=== PATIENT | male | born 1980 | race Caucasian/White ===

== ENCOUNTER 2018-09-24 20:05 | Emergency (ER) | payer OTHER ==
--- OUTSIDE RECORDS SUMMARY | 2018-09-24 20:07 | XMS REPORT | Continuity of Care Document ---
:09/05/1990 Author Organization Interface Problems Problem Status Onset Classification Date Comments Source Date Reported Discharge 01/29/2017 [facility] Diagnosis: 7 Medical Exposure to [place] hepatitis C EXPOSURE Active [address] Medications Medication Details Route Status Patient Ordering Order Source Instructions Provider Date Allergies, Adverse Reactions, Alerts Substance Category Reaction Severity Reaction Status Date Comments Source type Reported Immunizations Immunization Date Given Site Status Last Updated Comments Source Results Order Results Value Reference Date Interpretation Comments Source Name Range Vital Signs Vital Sign Value Date Comments Source Temperature Oral (F) 97.9 F 01/26/2017 [facility] Systolic (mm Hg) 130 01/26/2017 [facility] Diastolic (mm Hg) 86 01/26/2017 [facility] Respitory Rate 16 01/26/2017 [facility] Heart Rate 66 01/26/2017 [facility] BMI Calculated 38.48 01/26/2017 [facility] Weight 118.182 01/26/2017 [facility] Temperature Oral (F) 97.9 F 01/26/2017 [facility] Height 175.26 cm 01/26/2017 [facility] Respitory Rate 18 01/26/2017 [facility] Heart Rate 68 01/26/2017 [facility] Systolic (mm Hg) 121 01/26/2017 [facility] Diastolic (mm Hg) 85 01/26/2017 [facility] Encounters Location Location Encounter Encounter Reason Attending ADM DC Status Source Details Type Number For Provider Date Date [facility] [id number] Dwayne 01/26 01/26 [facility] Jeramie Ulisses /2016 [facility] Procedures Procedure Code Date Perfomer Comments Source
--- OUTSIDE RECORDS SUMMARY | 2018-09-24 20:07 | XMS REPORT | Summary of Care ---
:09/05/1990 Author Organization [facility] Address [address] [place] [id number]- Encounter HQ Pb_jefe(ANDREW) [id number] Date(s): 01/26/17 - 01/26/[address] Professional Services provided by [facility] [place] [address]- Discharge Diagnosis: Exposure to hepatitis C Discharge Disposition: Home or Self Care Attending Physician: Carito Hicks MD Admitting Physician: Dwayne Gtz MD Vital Signs Most recent to oldest [Reference Range]: 1 2 Height 175.26 cm (01/26/17 8:26 AM) Temperature Oral [96.4-99.1 DegF] 97.9 DegF 97.9 DegF (01/26/17 10:00 AM) (01/26/17 8:26 AM) Blood Pressure [90-140/60-90 mmHg] 130/86 mmHg 121/85 mmHg (01/26/17 10:00 AM) (01/26/17 8:26 AM) Respiratory Rate [14-20 BRMIN] 16 BRMIN 18 BRMIN (01/26/17 10:00 AM) (01/26/17 8:26 AM) Peripheral Pulse Rate [60-100 bpm] 66 bpm 68 bpm (01/26/17 10:00 AM) (01/26/17 8:26 AM) Weight 118.182 kg (01/26/17 8:26 AM) Body Mass Index 38.48 m2 (01/26/17 8:26 AM) Problem List No data available for this section Allergies, Adverse Reactions, Alerts Substance Reaction Severity Status NKDA Active Medications No data available for this section Results No data available for this section Immunizations No data available for this section Procedures No data available for this section Social History Social History Type Response Smoking Status Never smoker; Exposure to Tobacco Smoke None; Cigarette Smoking Last 365 Days No; Reg Smoking Cessation Counseling No Assessment and Plan No data available for this section
[2018-09-24] MEDS ORDERED: IBUPROFEN 400 MG TAB ONE (20:39)
[2018-09-24] MEDS ORDERED: NA CHLORIDE 0.9% 1,000 ML ONE ×2 (20:39→20:44)
[2018-09-24] MEDS ORDERED: ACETAMINOPHEN 500 MG TAB ONE (20:39)
[2018-09-24] MEDS ORDERED: IBUPROFEN 200 MG TAB PO ONE (20:43)
[2018-09-24] MEDS ORDERED: CEFTRIAXONE/SWI 1gm 1 GM/10 ML SYR ONE (20:44)
--- NOTE | 2018-09-24 20:52 | RAD REPORT ---
EXAM DESCRIPTION: RAD - Chest Pa And Lat (2 Views) - 09/24/2018 8:41 pm CLINICAL HISTORY: COUGH Chest pain. COMPARISON: No comparisons FINDINGS: The lungs are clear. The heart is normal in size. No displaced fractures. IMPRESSION: No acute or concerning finding suspected.
[2018-09-24 21:11] LABS: Absolute Lymphocytes (CBC) 0.6 K/uL (0.7-4.9); Absolute Monocytes 0.9 K/uL (0.1-1.3); Absolute Neutrophil 5.3 K/uL (1.8-8.0); Basophils % 0.3 % (0-1.3); Hematocrit 43.6 % (39.6-49.0); Lymphocytes % 8.3 % (15.3-44.8); Monocytes % 13.7 % (3.3-12.3); RBC Red Blood Cell Count 4.93 M/uL (4.33-5.43)
[2018-09-24 21:22] LABS: Albumin 4.4 g/dL (3.4-5.0); Bilirubin Total 0.6 mg/dL (0.2-1.0); Potassium 3.8 mmol/L (3.5-5.1)
[2018-09-24 21:23] LABS: Urine Blood NEGATIVE (NEG); Urine Glucose NEGATIVE (NEG); Urine Protein NEGATIVE (NEG)
--- NOTE | 2018-09-24 21:27 | EDPHYS ---
Physician Documentation [facility] Name: Lauri Boyd Age: 38 yrs Sex: Male : 1980 Arrival Date: 09/24/2018 Time: 20:06 Bed 8 Private MD: DUONG Physician Alexander Blankenship HPI: 09/24 20:32 This 38 yrs old Male presents to ER via Ambulatory with complaints of Fever, raymond Headache. 20:32 The patient reports fever, that was measured at 103 degrees Fahrenheit. Onset: The raymond symptoms/episode began/occurred 2 day(s) ago. Modifying factors: there are no obvious modifying factors. Associated signs and symptoms: Pertinent positives:. Severity of symptoms: At their worst the symptoms were. The patient has not experienced similar symptoms in the past. Historical: - Allergies: 20:12 No Known Allergies; la1 - PMHx: 20:12 None; la1 - PSHx: 20:12 ankle; colonoscopy; la1 - Immunization history:: Adult Immunizations up to date. - Social history:: Smoking status: unknown. - Ebola Screening: : No symptoms or risks identified at this time. - Family history:: not pertinent. ROS: 20:32 Constitutional: Negative for fever, chills, and weight loss, Eyes: Negative for injury, raymond pain, redness, and discharge, ENT: Negative for injury, pain, and discharge, Neck: Negative for injury, pain, and swelling, Cardiovascular: Negative for chest pain, palpitations, and edema, Respiratory: Negative for shortness of breath, cough, wheezing, and pleuritic chest pain, Abdomen/GI: Negative for abdominal pain, nausea, vomiting, diarrhea, and constipation, Back: Negative for injury and pain, : Negative for injury, bleeding, discharge, and swelling, MS/Extremity: Negative for injury and deformity, Skin: Negative for injury, rash, and discoloration, Neuro: Negative for headache, weakness, numbness, tingling, and seizure, Psych: Negative for depression, anxiety, suicide ideation, homicidal ideation, and hallucinations, Allergy/Immunology: Negative for hives, rash, and allergies, Endocrine: Negative for neck swelling, polydipsia, polyuria, polyphagia, and marked weight changes, Hematologic/Lymphatic: Negative for swollen nodes, abnormal bleeding, and unusual bruising. Exam: 20:32 Head/Face: Normocephalic, atraumatic. Eyes: Pupils equal round and reactive to light, raymond extra-ocular motions intact. Lids and lashes normal. Conjunctiva and sclera are non-icteric and not injected. Cornea within normal limits. Periorbital areas with no swelling, redness, or edema. ENT: Nares patent. No nasal discharge, no septal abnormalities noted. Tympanic membranes are normal and external auditory canals are clear. Oropharynx with no redness, swelling, or masses, exudates, or evidence of obstruction, uvula midline. Mucous membranes moist. Neck: Trachea midline, no thyromegaly or masses palpated, and no cervical lymphadenopathy. Supple, full range of motion without nuchal rigidity, or vertebral point tenderness. No Meningismus. Chest/axilla: Normal chest wall appearance and motion. Nontender with no deformity. No lesions are appreciated. Cardiovascular: Regular rate and rhythm with a normal S1 and S2. No gallops, murmurs, or rubs. Normal PMI, no JVD. No pulse deficits. Respiratory: Lungs have equal breath sounds bilaterally, clear to auscultation and percussion. No rales, rhonchi or wheezes noted. No increased work of breathing, no retractions or nasal flaring. Abdomen/GI: Soft, non-tender, with normal bowel sounds. No distension or tympany. No guarding or rebound. No evidence of tenderness throughout. Back: No spinal tenderness. No costovertebral tenderness. Full range of motion. Male : Normal genitalia with no discharge or lesions. Skin: Warm, dry with normal turgor. Normal color with no rashes, no lesions, and no evidence of cellulitis. MS/ Extremity: Pulses equal, no cyanosis. Neurovascular intact. Full, normal range of motion. Neuro: Awake and alert, GCS 15, oriented to person, place, time, and situation. Cranial nerves II-XII grossly intact. Motor strength 5/5 in all extremities. Sensory grossly intact. Cerebellar exam normal. Normal gait. Psych: Awake, alert, with orientation to person, place and time. Behavior, mood, and affect are within normal limits. 20:32 Constitutional: The patient appears febrile. 21:18 Neuro: Orientation: is normal, appropriate for stated age, Mentation: is normal, raymond appropriate for stated age, Memory: is normal, appropriate for stated age, Cranial nerves: grossly normal, is grossly normal based on the patient's age, Cerebellar function: is grossly normal, is grossly normal based on the patient's age, Motor: moves all fours, Sensation: no obvious gross deficits, appropriate no acute changes, Gait: is steady, appropriate for age, seizure activity, is not displayed by the patient. Vital Signs: 20:12 BP 112 / 76; Pulse 99; Resp 16; Temp 101.0; Pulse Ox 99% on R/A; Weight 74.84 kg; la1 Height 5 ft. 9 in. (175.26 cm); Pain /; 21:08 BP 115 / 78; Pulse 85; Resp 16; Pulse Ox 100% on R/A; aa1 21:35 BP 111 / 71; Pulse 84; Resp 16; Temp 99(O); Pulse Ox 100% on R/A; ag4 20:12 Body Mass Index 24.37 (74.84 kg, 175.26 cm) la1 MDM: 20:13 Patient medically screened. [facility] 20:35 Data reviewed: vital signs, nurses notes, lab test result(s), radiologic studies, plain raymond films. 09/24 20:29 Order name: CBC with Diff; Complete Time: 21:18 [facility] 09/24 20:29 Order name: Comprehensive Metabolic Panel; Complete Time: 21:26 [facility] 09/24 20:29 Order name: Blood Culture Adult (2) [facility] 09/24 20:29 Order name: Urine Culture [facility] 09/24 20:29 Order name: Strep; Complete Time: 21:18 [facility] 09/24 20:29 Order name: Flu; Complete Time: 21:18 [facility] 09/24 20:29 Order name: Chest Pa And Lat (2 Views) XRAY; Complete Time: 21:02 [facility] 09/24 20:43 Order name: Urine Dipstick--Ancillary (enter results); Complete Time: 21:26 ar5 09/24 21:08 Order name: Throat Culture [facility] 09/24 20:29 Order name: Urine Dipstick-Ancillary (obtain specimen); Complete Time: 20:37 [facility] Administered Medications: 20:37 Drug: Motrin 600 mg Route: PO; 21:37 Follow up: Response: No adverse reaction; Temperature is decreased aa1 20:37 Drug: Tylenol 1000 mg Route: PO; fc 21:37 Follow up: Response: No adverse reaction; Temperature is decreased aa1 20:37 CANCELLED (md order): NS 0.9% 1000 ml IV at 1 bolus Per protocol; 1000 mL bolus 20:58 Drug: NS 0.9% 1000 ml Route: IV; Rate: 1 bolus; Site: left antecubital; aa1 21:49 Follow up: IV Status: Completed infusion; IV Intake: 1000ml aa 20:58 Drug: NS 0.9% 1000 ml Route: IV; Rate: 1 bolus; Site: left antecubital; aa1 21:49 Follow up: IV Status: Completed infusion; IV Intake: 1000ml aa 20:58 Drug: Rocephin 1 grams Route: IV; Rate: per protocol; Site: left antecubital; aa1 21:03 Follow up: IV Status: Completed infusion aa1 21:49 Drug: Zithromax 500 mg Route: PO; aa1 21:49 Follow up: Response: Medication administered at discharge. aa1 Disposition: 09/24/18 21:27 Discharged to Home. Impression: Fever, unspecified, Malaise and fatigue. - Condition is Stable. - Discharge Instructions: Fever, Adult, Weakness, Weakness, [id number], Fever, Adult, [id number]. - Prescriptions for Zithromax 500 mg Oral Tablet - take 1 tablet by ORAL route once daily for 4 days; 4 tablet. - Medication Reconciliation Form, Thank You Letter, Antibiotic Education, Prescription Opioid Use form. - Follow up: Private Physician; When: 2 - 3 days; Reason: Recheck today's complaints, Continuance of care, Re-evaluation by your physician. - Problem is new. - Symptoms have improved. Signatures: Dispatcher [employer] EDMS Judy Velasquez RN RN aa1 Alexander Blankenship MD MD cha Chretien, Felicia, RN RN Altaf Nguyen RN RN la1 Corrections: (The following items were deleted from the chart) 20:37 20:29 NS 0.9% 1000 ml IV at 1 bolus Per protocol; 1000 mL bolus ordered. raymond 21:52 21:27 09/24/2018 21:27 Discharged to Home. Impression: Fever, unspecified; Malaise and aa1 fatigue. Condition is Stable. Discharge Instructions: Fever, Adult, Weakness, Weakness, [id number]-[id number], Fever, Adult, [id number]. Prescriptions for Zithromax 500 mg Oral Tablet - take 1 tablet by ORAL route once daily for 5 days; 5 tablet. and Forms are Medication Reconciliation Form, Thank You Letter, Antibiotic Education, Prescription Opioid Use. Follow up: Private Physician; When: 2 - 3 days; Reason: Recheck today's complaints, Continuance of care, Re-evaluation by your physician. Problem is new. Symptoms have improved. raymond
--- NOTE | 2018-09-24 21:27 | ER ---
Nurse's Notes [facility] Name: Lauri Boyd Age: 38 yrs Sex: Male : 1980 Arrival Date: 09/24/2018 Time: 20:06 Bed 8 Private MD: Diagnosis: Fever, unspecified;Malaise and fatigue Presentation: 09/24 20:11 Presenting complaint: Patient states: Fever and headache since last night, TMAX 103, la1 motrin taken at 1400. Transition of care: patient was not received from another setting of care. Onset of symptoms was September 24, 2018. Risk Assessment: Do you want to hurt yourself or someone else? Patient reports no desire to harm self or others. Risk Assessment: Do you want to hurt yourself or someone else?. Initial Sepsis Screen: Does the patient meet any 2 criteria? No. Patient's initial sepsis screen is negative. Does the patient have a suspected source of infection? No. Patient's initial sepsis screen is negative. Care prior to arrival: None. 20:11 Method Of Arrival: Ambulatory la1 20:11 Acuity: RADHA 3 la1 Historical: - Allergies: 20:12 No Known Allergies; la1 - PMHx: 20:12 None; la1 - PSHx: 20:12 ankle; colonoscopy; la1 - Immunization history:: Adult Immunizations up to date. - Social history:: Smoking status: unknown. - Ebola Screening: : No symptoms or risks identified at this time. - Family history:: not pertinent. Screenin:20 Abuse screen: Denies threats or abuse. Denies injuries from another. Nutritional aa1 screening: No deficits noted. Tuberculosis screening: No symptoms or risk factors identified. Fall Risk None identified. Assessment: 20:20 General: Appears in no apparent distress. comfortable, slender, Behavior is calm, aa1 cooperative, appropriate for age. Pain: Complains of pain in head Quality of pain is described as aching, throbbing, Is continuous. Neuro: Level of Consciousness is awake, alert, obeys commands, Oriented to person, place, time, situation, Moves all extremities. Gait is steady, Speech is normal. Neuro: Reports headache. Cardiovascular: Heart tones S1 S2 present Rhythm is regular. Respiratory: Airway is patent Respiratory effort is even, unlabored, Respiratory pattern is regular, symmetrical, Breath sounds are clear bilaterally. GI: No signs and/or symptoms were reported involving the gastrointestinal system. : No signs and/or symptoms were reported regarding the genitourinary system. EENT: No signs and/or symptoms were reported regarding the EENT system. Throat is clear. Derm: Skin is intact, is healthy with good turgor, Skin is pink, warm \T\ dry. Musculoskeletal: Circulation, motion, and sensation intact. Capillary refill < 3 seconds. 21:50 Reassessment: Patient appears in no apparent distress at this time. Patient is alert, aa1 oriented x 3, equal unlabored respirations, skin warm/dry/pink. Discussed d/c \T\ f/u instructions with pt; denies questions or concerns at this time. Amb to lobby with steady gait. Patient states feeling better. Patient states symptoms have improved. Vital Signs: 20:12 BP 112 / 76; Pulse 99; Resp 16; Temp 101.0; Pulse Ox 99% on R/A; Weight 74.84 kg; la1 Height 5 ft. 9 in. (175.26 cm); Pain 1/10; 21:08 BP 115 / 78; Pulse 85; Resp 16; Pulse Ox 100% on R/A; aa1 21:35 BP 111 / 71; Pulse 84; Resp 16; Temp 99(O); Pulse Ox 100% on R/A; ag4 20:12 Body Mass Index 24.37 (74.84 kg, 175.26 cm) la1 ED Course: 20:06 Patient arrived in ED. am2 20:11 Triage completed. la1 20:12 Arm band placed on left wrist. la1 20:13 Alexander Blankenship MD is Attending Physician. [facility] 20:19 Judy Velasquez, JOE is Primary Nurse. aa1 20:20 Patient has correct armband on for positive identification. Bed in low position. Call aa1 light in reach. Pulse ox on. NIBP on. 20:28 Urine collected: clean catch specimen, daniel colored. aa1 20:30 Initial lab(s) drawn, by me, sent to lab. First set of blood cultures drawn by me. aa1 Inserted saline lock: 20 gauge in left antecubital area, using aseptic technique. Blood collected. 20:39 Chest Pa And Lat (2 Views) XRAY In Process Unspecified. EDMS 20:48 Second set of blood cultures drawn by me. aa1 21:50 No provider procedures requiring assistance completed. IV discontinued, intact, aa1 bleeding controlled, No redness/swelling at site. Pressure dressing applied. Administered Medications: 20:37 Drug: Motrin 600 mg Route: PO; fc 21:37 Follow up: Response: No adverse reaction; Temperature is decreased aa1 20:37 Drug: Tylenol 1000 mg Route: PO; fc 21:37 Follow up: Response: No adverse reaction; Temperature is decreased aa1 20:37 CANCELLED (md order): NS 0.9% 1000 ml IV at 1 bolus Per protocol; 1000 mL bolus 20:58 Drug: NS 0.9% 1000 ml Route: IV; Rate: 1 bolus; Site: left antecubital; aa1 21:49 Follow up: IV Status: Completed infusion; IV Intake: 1000ml aa 20:58 Drug: NS 0.9% 1000 ml Route: IV; Rate: 1 bolus; Site: left antecubital; aa1 21:49 Follow up: IV Status: Completed infusion; IV Intake: 1000ml aa1 20:58 Drug: Rocephin 1 grams Route: IV; Rate: per protocol; Site: left antecubital; aa1 21:03 Follow up: IV Status: Completed infusion aa1 21:49 Drug: Zithromax 500 mg Route: PO; aa1 21:49 Follow up: Response: Medication administered at discharge. aa1 Intake: 21:49 IV: 1000ml; Total: 1000ml. aa1 21:49 IV: 1000ml; Total: 2000ml. aa1 Outcome: 21:27 Discharge ordered by . [facility] 21:50 Discharged to home ambulatory. aa1 21:50 Condition: good 21:50 Discharge instructions given to patient, Instructed on discharge instructions, follow up and referral plans. medication usage, Demonstrated understanding of instructions, follow-up care, medications, Prescriptions given X 1. 21:52 Patient left the ED. aa1 Signatures: Dispatcher [employer] EDMS Judy Velasquez RN RN aa1 Alexander Blankenship MD MD cha Chretien, Felicia, RN RN fc Attema, Lee, RN RN laVenita Conley amRicardo Cueto ag4 Corrections: (The following items were deleted from the chart) 20:12 20:11 Acuity: RADHA 3 la1 la1 20:20 20:11 Acuity: RADHA 4 la1 la1
[2018-09-24] MEDS ORDERED: AZITHROMYCIN 250 MG TAB ONE (21:56)
== END 2018-09-24 21:52 | disposition home or self-care (01) ==
LOC: ER 20:05
DX: R53.81 Other malaise (principal); R53.83 Other fatigue
CPT/HCPCS: 36415; 71046; 80053; 81003; 85025; 87040; 87070; 87081; 87086; 87088; 87804; J0696; J7030

== ENCOUNTER 2019-10-05 18:53 | Emergency (ER) | payer OTHER ==
--- OUTSIDE RECORDS SUMMARY | 2019-10-05 18:54 | XMS REPORT | Continuity of Care Document ---
:09/05/1990 Author Organization [employer] Care Team Providers Name Role Phone [employer] Unavailable Un available Problems Problem Status Onset Classification Date Comments Sour e Date Reported Contact with 01/29/2017 [facility] and [address] [place] [address] (suspected) [place] exposure to viral hepatitis EXPOSURE Active [address] Medications No Data Provided for This Section Allergies, Adverse Reactions, Alerts No Known Medication Allergies Immunizations No Data Provided for This Section Results No Data Provided for This Section Pathology Reports No Data Provided for This Section Diagnostic Reports No Data Provided for This Section Consultation Notes No Data Provided for This Section Discharge Summaries No Data Provided for This Section History and Physicals No Data Provided for This Section Vital Signs Vital Sign Value Date Comments Source Temperature Oral (F) 97.9 F 01/26/2017 [facility] Systolic (mm Hg) 130 01/26/2017 [facility] Diastolic (mm Hg) 86 01/26/2017 [facility] Respitory Rate 16 01/26/2017 [facility] Heart Rate 66 01/26/2017 [facility] BMI Calculated 38.48 01/26/2017 [facility] Weight 118.182 01/26/2017 [facility] Temperature Oral (F) 97.9 F 01/26/2017 [facility] Height 175.26 cm 01/26/2017 [facility] Respitory Rate 18 01/26/2017 [facility] Heart Rate 68 01/26/2017 [facility] Systolic (mm Hg) 121 01/26/2017 [facility] Diastolic (mm Hg) 85 01/26/2017 [facility] Encounters Location Location Encounter Encounter Reason Attending ADM DC Stat us Source Details Type Number For Provider Date Date [facility] [id number] Dwayne 01/26 01/26 [facility] Ulisses /2016 [facility] Procedures No Data Provided for This Section Assessment and Plan No Data Provided for This Section Plan of Care No Data Provided for This Section Social History Social History Date Source Social History TypeResponse 01/26/2017 [facility] Smoking Status Never smoker; Exposure to Tobacco Smoke None; Cigarette Smoking Last 365 Days No; Reg Smoking Cessation Counseling No Family History No Data Provided for This Section Advance Directives No Data Provided for This Section Functional Status No Data Provided for This Section
--- OUTSIDE RECORDS SUMMARY | 2019-10-05 18:55 | XMS REPORT ---
:1980 Author Organization [employer] Care Team Providers Name Role Phone Nain Antonio Provider Role Unavailable Allergies, Adverse Reactions, Alerts Substance Reaction Event Type N.K.D.A. Info Not Available Non Drug Allergy Problems Problem Type Condition Code Onset Dates Condition Statu s Problem Family history of colon cancer in Z80.0 Active mother Problem Non-seasonal allergic rhinitis, J30.89 Active unspecified trigger Problem Hypercholesteremia E78.00 Active Assessment Upper respiratory tract infection, J06.9 Active unspecified type Assessment Acute non-recurrent maxillary J01.00 Active sinusitis Problem Seasonal allergies J30.2 Active Medications Medication Code Code Instructions Start End Date Status Dosage System Date Zyrtec Allergy [facility] 30272014411 10 MG Orally Active 1 tablet Once a day Montelukast [facility] 46479318591 10 MG Orally Active 1 t ablet Sodium Once a day Azithromycin [facility] 68086761741 250 MG Orally July Active 2 tablets Once a day 2019 on the first day, then 1 tablet daily for 4 days Results Name Result Date Reference Range Unit Abnormali ty Flag STREP A RAPID ----Result Neg [id number] FLU TEST A/B ----B Neg [id number] ----A Neg [id number] Summary Purpose [employer] Submission
--- OUTSIDE RECORDS SUMMARY | 2019-10-05 18:55 | XMS REPORT ---
:1980 Author Organization [facility] t Address [address] [place] [address] Care Team Providers Name Role Phone Unavailable Unavailable Unavailable Problems Condition Condition Condition Status Onset Resolution Last Treatin g Comments Name Details Category Date Date Treatment Clinician Date Family Family Problem Active history of history of colon colon cancer in cancer in mother mother Non-seasona Non-seasona Problem Active l allergic l allergic rhinitis, rhinitis, unspecified unspecified trigger trigger Hypercholes Hypercholes Problem Active teremia teremia Upper Upper Diagnosis Active respiratory respiratory tract tract infection, infection, unspecified unspecified type type Acute Acute Diagnosis Active non-recurre non-recurre nt nt maxillary maxillary sinusitis sinusitis Seasonal Seasonal Problem Active allergies allergies Allergies, Adverse Reactions, Alerts This patient has no known allergies or adverse reactions. Medications Ordered Filled Start Stop Current Ordering Indication Dosage Frequency Signature Comments Components Medication Medication Date Date Medication? Clinician (SIG) Name Name Reidjovonwillian Connie 2019- Yes Antonio 2 tabl ets n n 07-30 [place] on the 00:00: 00:00 first day, 00 :00 then 1 tablet daily for 4 days Zyrtec Zyrtec Yes Antonio 1 tablet Allergy Allergy [place] Montelukast Montelukast Yes Antonio 1 table t Sodium Sodium [place] Encounters Start End Encounter Admission Attending Care Care Encounter Date/Time Date/Time Type Type Clinicians Facility Department ID 2019-07-31 2019-07-31 [facility] [id number] 14:15:00 14:15:[address] [facility] Medicine
[2019-10-05] MEDS ORDERED: IBUPROFEN 400 MG TAB ONE (19:30)
[2019-10-05] MEDS ORDERED: ACETAMINOPHEN 325 MG TABLET ONE (19:30)
--- NOTE | 2019-10-05 19:55 | RAD REPORT ---
EXAM DESCRIPTION: RAD - Lumbar Spine 3 Views - 10/05/2019 7:43 pm CLINICAL HISTORY: Back pain FINDINGS: The alignment of the lumbar spine is satisfactory. No fracture or dislocation is seen.
--- NOTE | 2019-10-05 19:59 | RAD REPORT ---
EXAM DESCRIPTION: RAD - Forearm Left - 10/05/2019 7:46 pm CLINICAL HISTORY: Left forearm pain status post injury FINDINGS: No fracture is seen
--- NOTE | 2019-10-05 20:00 | RAD REPORT ---
EXAM DESCRIPTION: RAD -Hand Left 3 View - 10/05/2019 7:44 pm CLINICAL HISTORY: Left hand pain status post injury FINDINGS: No fracture or dislocation is seen.
--- NOTE | 2019-10-05 20:02 | RAD REPORT ---
EXAM DESCRIPTION: RAD - Pelvis - 10/05/2019 7:43 pm CLINICAL HISTORY: Pelvic pain status post injury FINDINGS: No fracture or dislocation is seen.
--- NOTE | 2019-10-05 20:05 | RAD REPORT ---
EXAM DESCRIPTION: RAD - Elbow Left 3 View - 10/05/2019 7:46 pm CLINICAL HISTORY: Left elbow pain status post trauma FINDINGS: Oval bony/calcific density lies along the anterior aspect of the elbow. The border is scle rotic. It has the appearance of a loose body. It likely is chronic since there does not appear to be a joint effusion No acute fracture or dislocation visualized If the patient's pain persists further imaging with MRI may be helpful
--- NOTE | 2019-10-05 20:42 | ER ---
Nurse's Notes [facility] Name: Lauri Boyd Age: 39 yrs Sex: Male : 1980 Arrival Date: 10/05/2019 Time: 18:56 Bed 12 Private MD: Antonio [place] Diagnosis: Low back pain;Fall on same level from slipping, tripping and stumbling;Pain in left elbow;Pain in left forearm;Pain in left hand Presentation: 10/04 18:56 Chief complaint: Patient states: employee here at [employer]. Reports he was walking aa5 some monitors to [employer] and slipped and fell onto wet floor. Pt c/o pain to left elbow, left FA, left hand, and right low back. Pt denies head injury, denies LOC. 18:56 Coronavirus screen: Proceed with normal triage. Patient denies a cough. Patient denies aa5 shortness of breath or difficulty breathing. Patient denies measured and/or subjective temperature greater than 100.4F prior to today's visit. Patient denies travel on a cruise ship or to a country the [facility] currently lists as an affected area. Patient denies contact with known and/or suspected case of COVID-19. Ebola Screen: Patient negative for fever greater than or equal to 101.5 degrees Fahrenheit, and additional compatible Ebola Virus Disease symptoms. Initial Sepsis Screen: Does the patient meet any 2 criteria? No. Patient's initial sepsis screen is negative. Does the patient have a suspected source of infection? No. Patient's initial sepsis screen is negative. Risk Assessment: Do you want to hurt yourself or someone else? Patient reports no desire to harm self or others. Note Sent here by Employee health. Onset of symptoms was October 05, 2019. 18:56 Method Of Arrival: Ambulatory aa5 18:56 Acuity: RADAH 4 aa5 Historical: - Allergies: 18:56 No Known Allergies; aa5 - Home Meds: 18:56 Zyrtec Oral [Active]; aa5 - PMHx: 18:56 seasonal allergies; aa5 - PSHx: 18:56 L ankle; aa5 - Immunization history:: Adult Immunizations up to date. - Social history:: Smoking status: Patient denies any tobacco usage or history of. Screenin:11 Abuse screen: Denies threats or abuse. Denies injuries from another. Nutritional lp1 screening: No deficits noted. Tuberculosis screening: No symptoms or risk factors identified. Fall Risk None identified. Assessment: 19:15 General: Appears in no apparent distress. Behavior is calm, cooperative, appropriate lp1 for age. Pain: Complains of pain in lumbar area and left arm. Neuro: Level of Consciousness is awake, alert, obeys commands. Cardiovascular: Patient's skin is warm and dry. Respiratory: Respiratory effort is even, unlabored. GI: No signs and/or symptoms were reported involving the gastrointestinal system. : No signs and/or symptoms were reported regarding the genitourinary system. EENT: No signs and/or symptoms were reported regarding the EENT system. Derm: Skin is pink, warm \T\ dry. Musculoskeletal: No deficits noted. 20:14 Reassessment: Patient appears in no apparent distress at this time. Patient is alert, lp1 oriented x 3, equal unlabored respirations, skin warm/dry/pink. Vital Signs: 18:56 BP 134 / 87; Pulse 67; Resp 16 S; Pulse Ox 98% on R/A; Weight 71.67 kg (R); Height 5 aa5 ft. 8 in. (172.72 cm) (R); Pain 1/10; 19:47 Temp 97.7(TE); lp1 18:56 Body Mass Index 24.02 (71.67 kg, 172.72 cm) aa5 ED Course: 18:56 Patient arrived in ED. am2 18:56 Antonio Gillette DO is Private Physician. am2 18:56 Arm band placed on. aa5 18:57 [facility] cp 18:57 Alexander Blankenship MD is Attending Physician. cp 19:01 Triage completed. aa5 19:19 Deshaun Olvera MD is Attending Physician. cp 19:22 Tamia Abrams, JOE is Primary Nurse. lp1 19:44 XRAY Elbow LEFT 3 view In Process Unspecified. EDMS 19:44 XRAY Forearm LEFT In Process Unspecified. EDMS 19:44 XRAY Pelvis In Process Unspecified. EDMS 19:44 XRAY Lumbar Spine (3 Views) In Process Unspecified. EDMS 19:44 XRAY Hand LEFT 3 View In Process Unspecified. EDMS 19:50 Patient has correct armband on for positive identification. lp1 20:14 Patient did not have IV access during this emergency room visit. lp1 21:00 Sling applied to left arm. lp1 21:00 No provider procedures requiring assistance completed. lp1 Administered Medications: 19:25 Not Given (Patient Refused): Ibuprofen 800 mg PO once lp1 19:25 Not Given (Patient Refused): Tylenol 650 mg PO once lp1 Outcome: 20:41 Discharge ordered by . tutu 21:00 Discharged to home ambulatory. lp1 21:00 Condition: good 21:00 Discharge instructions given to patient, Instructed on discharge instructions, follow up and referral plans. Demonstrated understanding of instructions, follow-up care, Prescriptions given X 2. 21:02 Patient left the ED. lp1 Signatures: Dispatcher [employer] EDMS Melvina Infante, RN RN aa5 Tamia Abrams RN RN lp1 Alexander Hendrickson, Venita Mandel cp
--- NOTE | 2019-10-05 20:42 | EDPHYS ---
Physician Documentation [facility] Name: Lauri Boyd Age: 39 yrs Sex: Male : 1980 Arrival Date: 10/05/2019 Time: 18:56 Bed 12 Private MD: [facility] ED Physician Deshaun Olvera HPI: 10/04 19:25 This 39 yrs old Male presents to ER via Ambulatory with complaints of Fall cp Injury. 19:25 Details of fall: The patient fell from an upright position, while walking, and struck a cp tile surface. Onset: The symptoms/episode began/occurred today. Associated injuries: The patient sustained injury to the low back, pain, left elbow, painful injury, swelling, left forearm, painful injury, left hand, painful injury. 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 Complains of injury to right elbow right forearm and right hand. Reports pain to lower right back. Historical: - Allergies: 18:56 No Known Allergies; aa5 - Home Meds: 18:56 Zyrtec Oral [Active]; aa5 - PMHx: 18:56 seasonal allergies; aa5 - PSHx: 18:56 L ankle; aa5 - Immunization history:: Adult Immunizations up to date. - Social history:: Smoking status: Patient denies any tobacco usage or history of. ROS: 19:35 Constitutional: Negative for body aches, chills, fever, poor PO intake. cp 19:35 Eyes: Negative for injury, pain, redness, and discharge. cp 19:35 ENT: Negative for ear pain, sore throat, difficulty swallowing, difficulty handling secretions. 19:35 Neck: Negative for pain with movement, pain at rest, stiffness. 19:35 Cardiovascular: Negative for chest pain, palpitations. 19:35 Respiratory: Negative for cough, shortness of breath, wheezing. 19:35 Abdomen/GI: Negative for abdominal pain, nausea, vomiting, and diarrhea, constipation, bowel incontinence. 19:35 Back: Positive for pain at rest, pain with movement, of the right low back. 19:35 : Negative for urinary symptoms, difficulty urinating, bladder incontinence, testicular pain 19:35 MS/extremity: Positive for pain, tenderness, of the left hand and left forearm and left elbow, Negative for decreased range of motion, deformity. 19:35 Neuro: Negative for altered mental status, dizziness, loss of consciousness, syncope, weakness. 19:35 All other systems are negative. Exam: 19:40 Constitutional: The patient appears in no acute distress, alert, awake, comfortable, cp well developed, well nourished. 19:40 Head/Face: Normocephalic, atraumatic. cp 19:40 Eyes: Periorbital structures: appear normal, Conjunctiva: normal, Lids and lashes: appear normal, bilaterally. 19:40 ENT: External ear(s): are unremarkable, Nose: is normal, Mouth: Lips: moist, Oral mucosa: pink and intact, moist, Posterior pharynx: is normal, airway is patent. 19:40 Neck: C-spine: vertebral tenderness, is not appreciated, crepitus, is not appreciated, ROM/movement: is normal, is supple, without pain, no range of motions limitations. 19:40 Chest/axilla: Inspection: normal, Palpation: is normal, no crepitus, no tenderness. 19:40 Cardiovascular: Rate: normal, Rhythm: regular. 19:40 Respiratory: the patient does not display signs of respiratory distress, Respirations: normal, no use of accessory muscles, labored breathing, is not present, Breath sounds: are clear throughout, no decreased breath sounds. 19:40 Abdomen/GI: Inspection: abdomen appears normal, Palpation: abdomen is soft and non-tender, in all quadrants. 19:40 Back: pain, that is mild, of the lumbar area and right low back, ROM is painful, with all movement. 19:40 Musculoskeletal/extremity: Extremities: grossly normal except: noted in the left elbow: pain, swelling, tenderness, There is no evidence of decreased ROM, deformity, noted in the left forearm: tenderness, no evidence of deformity, noted in the left hand: pain, tenderness, no evidence of decreased ROM, deformity. 19:40 Neuro: Orientation: to person, place \T\ time. Mentation: is normal, Motor: moves all fours, strength is normal, Sensation: no obvious gross deficits, Gait: is steady. Vital Signs: 18:56 BP 134 / 87; Pulse 67; Resp 16 S; Pulse Ox 98% on R/A; Weight 71.67 kg (R); Height 5 aa5 ft. 8 in. (172.72 cm) (R); Pain /10; 19:47 Temp 97.7(TE); lp1 18:56 Body Mass Index 24.02 (71.67 kg, 172.72 cm) aa5 MDM: 18:57 Patient medically screened. cp 19:30 Differential diagnosis: contusion, fracture, multiple trauma. cp 19:30 Counseling: I had a detailed discussion with the patient and/or guardian regarding: the cp historical points, exam findings, and any diagnostic results supporting the discharge/admit diagnosis, radiology results, the need for outpatient follow up, a family practitioner, to return to the emergency department if symptoms worsen or persist or if there are any questions or concerns that arise at home. Response to treatment: the patient's symptoms have mildly improved after treatment, and as a result, I will discharge patient. ED course: VSS. Results of xrays discussed that were negative for acute fractures. Patient refused work restrictions and reports he will return to full duty at work after being off this weekend. 20:40 Data reviewed: vital signs, nurses notes, radiologic studies, plain films, and as a cp result, I will discharge patient. 10/04 19:19 Order name: XRAY Elbow LEFT 3 view cp 10/04 19:19 Order name: XRAY Forearm LEFT cp 10/04 19:19 Order name: XRAY Pelvis cp 10/04 19:19 Order name: XRAY Lumbar Spine (3 Views) cp 10/04 19:19 Order name: XRAY Hand LEFT 3 View cp 10/04 20:46 Order name: Sling; Complete Time: 21:00 cp Administered Medications: 19:25 Not Given (Patient Refused): Ibuprofen 800 mg PO once lp1 19:25 Not Given (Patient Refused): Tylenol 650 mg PO once lp1 Disposition: 10/05 04:05 Co-signature as Attending Physician, Deshaun Olvera MD. pkl Disposition: 10/05/19 20:41 Discharged to Home. Impression: Low back pain, Fall on same level from slipping, tripping and stumbling, Pain in left elbow, Pain in left forearm, Pain in left hand. - Condition is Stable. - Discharge Instructions: Back Pain, Adult, Musculoskeletal Pain, Heat Therapy, Back Exercises, Hand Pain. - Prescriptions for Cyclobenzaprine 10 mg Oral Tablet - take 1 tablet by ORAL route every 8 hours As needed no driving while taking medication; 20 tablet. Diclofenac Sodium 75 mg Oral Tablet, Delayed Release (E.C.) - take 1 tablet by ORAL route 2 times per day; 20 tablet. - Medication Reconciliation Form, Thank You Letter, Antibiotic Education, Prescription Opioid Use form. - Follow up: Private Physician; When: 2 - 3 days; Reason: Worsening of condition. - Problem is new. - Symptoms have improved. Signatures: Dispatcher [employer] EDMS Deshaun Olvera MD MD pkMelvina Anglin RN RN aa5 Tamia Abrams RN RN lp1 Alexander Hendrickson PA PA cp Corrections: (The following items were deleted from the chart) 10/04 21:00 20:46 Splint - Wrist ordered. cp lp1 21:02 20:41 10/05/2019 20:41 Discharged to Home. Impression: Low back pain; Fall on same lp1 level from slipping, tripping and stumbling; Pain in left elbow; Pain in left forearm; Pain in left hand. Condition is Stable. Forms are Medication Reconciliation Form, Thank You Letter, Antibiotic Education, Prescription Opioid Use. Follow up: Private Physician; When: 2 - 3 days; Reason: Worsening of condition. Problem is new. Symptoms have improved. cp
[2019-10-05 21:30] VITALS: BP 134/87; O2SAT 98
[2019-10-05 21:32] VITALS: TEMP 97.7
== END 2019-10-05 21:02 | disposition home or self-care (01) ==
LOC: ER 18:53
DX: M25.522 Pain in left elbow (principal); M79.632 Pain in left forearm; M79.642 Pain in left hand; W01.0XXA Fall on same level from slipping, tripping and stumbling without subsequent striking against object, initial encounter; Y93.89 Activity, other specified; Y92.239 Unspecified place in hospital as the place of occurrence of the external cause; Y99.8 Other external cause status
CPT/HCPCS: 72100; 72170; 99283